=== PATIENT | female | born 1940 | race Caucasian/White ===

== ENCOUNTER → 2022-03-28 15:49 | Outpatient (CLI) | payer MEDICARE, SELFPAY ==
--- NOTE | 2022-03-28 15:52 | DI.MRI.S_ITS ---
PROCEDURE: MR LUMBAR SPINE WO CON INDICATIONS: Spinal stenosis, lumbar region TECHNIQUE: Noncontrast sagittal T1 spin echo and T2 fast echo, sagittal STIR, and T2 fast spin echo through the lumbar spine. In cases with scoliosis, additional coronal T2 fast spin echo may be performed. COMPARISON: [facility] [place], CR, XR LUMBAR SPINE 2 OR 3 VIEWS, 02/25/2022, 13:44. [facility] Outside Film, MR, MR LUMBAR SPINE WITHOUT CONTRAST, 04/08/2016, 13:50. (No written reports accompany the outside images.) FINDINGS: Image quality: Excellent. Alignment and Curvature: There is minimal retrolisthesis seen at L3-L4 and at L4-L5. Bone Marrow: Marrow is of normal overall signal. Scattered foci are seen, which are hyperintense on T1-weighted and T2-weighted imaging, which are most consistent with benign vertebral body hemangiomas. No acute vertebral body compression fractures. There is 20-30% loss of height centrally at the L3 level, which is similar to 2016. Spinal Cord: Conus medullaris terminates at the L1-L2 level. Visualized cord demonstrates normal signal and size. Paraspinous Soft Tissues: No paravertebral masses. T12-L1: Normal appearance. L1-L2: Mild loss of disc height is seen. Loss of disc signal is seen. Mild disc bulge is seen, with a mild central/right disc protrusion. No neural foraminal narrowing is seen. Mild central canal narrowing is seen. When comparison is made with the prior images, these findings are similar. L2-L3: Mild loss of disc height is seen. Loss of disc signal is seen. Ltox-be-nflepbin disc bulge is seen. Mild facet joint hypertrophy is seen. Minimal to mild bilateral neural foraminal narrowing can be seen. Moderate central canal narrowing is seen. These imaging findings have progressed compared to the prior study. L3-L4: Moderate to severe loss of disc height and disc signal can be seen. Reactive marrow endplate changes are seen, which are hyperintense on T1-weighted and T2-weighted imaging and most consistent with fatty metaplasia (Modic type II changes). Moderate disc bulge is seen, which is eccentric to the left. Mild facet joint hypertrophy is seen. There is moderate left-sided and mild right-sided neural foraminal narrowing. Moderate central canal narrowing is seen. Stable from the prior study. L4-L5: Moderate to severe loss of disc height and disc signal can be seen. Reactive marrow endplate changes are seen, which are hyperintense on T1-weighted and T2-weighted imaging and most consistent with fatty metaplasia (Modic type II changes). At least moderate disc bulge is seen, which is eccentric to the right. Moderate facet joint hypertrophy is seen. At least moderate bilateral neural foraminal narrowing can be seen. There is a degree of compression seen upon the exiting nerve roots. Moderate central canal narrowing is seen. When comparison is made with the prior images, these findings are similar. L5-S1: Moderate loss of disc height is seen. Loss of disc signal is seen. Moderate generalized disc bulge is seen. Mild facet joint hypertrophy is seen. There is moderate to severe bilateral neural foraminal narrowing seen, with an associated a degree of compression seen upon the exiting nerve roots. Mild central canal narrowing is seen. Stable from the prior study. IMPRESSION: Multiple levels of lumbar spine degenerative change are seen, which are mildly progressed at L2-L3, yet otherwise appear similar to 2016. Dictated by: Israel Buenrostro M.D. on 03/28/2022 at 16:39 Approved by: Israel Buenrostro M.D. on 03/28/2022 at 16:43
== END ==
PROVIDERS: Referring Provider Orthopaedic Surgery Orthopaedic Surgery of the Spine; Visit Provider Orthopaedic Surgery Orthopaedic Surgery of the Spine
DX: M48.061 Spinal stenosis, lumbar region without neurogenic claudication (principal)
CPT/HCPCS: 72148